=== PATIENT | male | born 1930 | race Caucasian/White ===

== ENCOUNTER 2017-05-02 16:20 | Outpatient (CLI) | payer MEDICARE, OTHER ==
[2014-11-04 15:44] VITALS: BP 160/72
[2017-05-02 17:01] LABS: BASOPHILS % 0.9 (0.0-1.5); EOSINOPHILS % 8.8 % (0.0-6.8); MEAN CORPUSCULAR HEMOGLOBIN 30.8 pg (28.0-34.0); MEAN CORPUSCULAR VOLUME 93.4 fl (80.0-100.0); MONOCYTES % 6.6 % (0.0-11.0); NEUTROPHILS # 2.7 # k/uL (1.4-7.7)
[2017-05-02 17:25] LABS: eGFR (African) > 60; eGFR (Non-African) > 60
== END 2017-05-02 16:21 ==
LOC: LAB 16:20
PROVIDERS: ATTEND Family Medicine
DX: R41.3 Other amnesia (principal); I10 Essential (primary) hypertension
CPT/HCPCS: 36415; 80053; 82607; 82746; 84443; 85025

== ENCOUNTER 2018-03-01 14:56 | Emergency (ER) | payer MEDICARE, OTHER ==
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
[2018-03-01 16:15] LABS: BASOPHILS % 0.5 (0.0-1.5); EOSINOPHILS % 3.5 % (0.0-6.8); MEAN CORPUSCULAR VOLUME 92.4 fl (80.0-100.0); MONOCYTES % 8.8 % (0.0-11.0); NEUTROPHILS # 3.2 # k/uL (1.4-7.7)
[2018-03-01 16:21] LABS: eGFR (African) > 60; eGFR (Non-African) > 60
[2018-03-01] MEDS ORDERED: MIDAZOLAM HCL 2 MG/2 ML VIAL IM ONE (16:45)
[2018-03-01 17:54] VITALS: BP 172/82
--- NOTE | 2018-03-01 19:34 | Diagnostic Imaging Report ---
RACHAEL MONTIEL [facility] [address] [facility] [address] [address] Report Submission Date: Mar 01, 2018 3:33:05 PM CDT Patient Study Name: RACHAEL MERIDA Date: Mar 01, 2018 3:11:40 PM CDT Modality Type: DX Gender: M Description: CHEST : 32 Institution: [facility] Physician: RACHAEL MONTIEL Portable chest History: Chest pain Portable chest dated March 01, 2018 demonstrates a normal cardiomediastinal silhouette. Pulmonary vascularity is normal. Lungs are clear. Impression: No active disease. Electronically signed on Mar 01, 2018 3:33:05 PM CDT by: Tri MCCLAIN
== END 2018-03-01 17:48 | disposition home or self-care (01) ==
LOC: ED 14:56
DX: R07.9 Chest pain, unspecified (principal); F41.9 Anxiety disorder, unspecified
CPT/HCPCS: 71045; 80053; 82550; 82553; 84484; 85025; 99284; S1016

== ENCOUNTER 2018-10-23 15:45 | Outpatient (CLI) | payer MEDICARE, OTHER ==
[2018-10-23 16:39] LABS: BASOPHILS % 0.5 % (0.0-1.5); EOSINOPHILS % 5.9 % (0.0-6.8); MEAN CORPUSCULAR HEMOGLOBIN 30.6 pg (28.0-34.0); MONOCYTES % 7.2 % (0.0-11.0); NEUTROPHILS # 4.2 # k/uL (1.4-7.7)
[2018-10-23 16:58] LABS: eGFR (Non-African) > 60
== END 2018-10-23 15:47 ==
LOC: LABRHC 15:45
PROVIDERS: ATTEND Family Medicine
DX: I10 Essential (primary) hypertension (principal); R41.0 Disorientation, unspecified; I25.10 Atherosclerotic heart disease of native coronary artery without angina pectoris
CPT/HCPCS: 36415; 80053; 85025

== ENCOUNTER 2019-02-14 09:55 | Observation (INO) | payer MEDICARE, OTHER ==
[2019-02-14 10:49] VITALS: BMI 29.0
[2019-02-14 11:22] LABS: BASOPHILS % 0.3 % (0.0-1.5); NEUTROPHILS # 4.8 # k/uL (1.4-7.7)
[2019-02-14 11:44] LABS: eGFR (Non-African) > 60
--- NOTE | 2019-02-14 11:49 | History and Physical Report ---
History of Present Illnes - History of Present Illness Reason for Visit: Weakness, Confusion, Deconditioning History of Present Illness: Patient is an 89-year-old male admitted from the clinic. and daughter are with him. Patient has a hx of dementia but family feels that he has declined over the last couple of days. Per family he has been more confused, unable to walk, unsteady, needing max assist with ADL's. states that he has been eating and drinking. Has not had a fever or chills. Family just feel that there is something else going on with patient. Patient appears to have a difficult time communicating- a little slouched in w/c. Due to symptoms we will admit patient observation and check labs and xray. 12:00 spoke with family- lab work coming back normal- still waiting on radiology tests- discussed with family potential discharge tomorrow- they want to take patient home- they have agreed to home health (they have had before and were very pleased). They are not ready for shelter placement yet. - Past Medical History Cardiac: CAD, HTN PRODUCT APPLICATIONS SCIENTIST: Dementia - Past Surgical History Past Surgical History: Other (RTC) - Past Social History Smoke: No Alcohol: None Drugs: None Lives: With Family Domestic Violence: Negative - Health Maintenance Health Maintenance: Cholesterol, Influenza Vaccine Influenza Vaccine: Current for this Influenza Season Pneumonia Vaccine: Yes Resuscitation Status: Resusciation Status Resuscitation Status Full Code,No Prolong Resuscitation Review of Systems - Review of Systems Constitutional: negative: Fever, Chills Eyes: negative: pain, vision change ENT: negative: Ear Pain, Throat Pain Respiratory: negative: Shortness of Breath Cardiovascular: negative: Chest Pain, Light Headedness Gastrointestinal: negative: Nausea, Vomiting, Abdominal Pain Genitourinary: Incontinence Musculoskeletal: negative: Back Pain Skin: negative: Rash Neurological: Weakness, Confusion - Medications/Allergies Allergies/Adverse Reactions: Allergies Allergy/AdvReac Type Severity Reaction Status Date / Time bacitracin Allergy Intermediate hives and Verified 03/01/18 15:10 swelling Current Inpatient Medications: Current Inpatient Medications Sodium Chloride (Normal Saline Flush) 3 ml IV BID [place] Stop: 03/16/19 20:59 Exam - Exam Vital Signs: Vital Signs (72 hours) 02/14/19 02/14/19 02/14/19 09:59 10:15 10:39 Temperature 97.7 F 97.7 F Pulse Rate 74 Pulse Rate [ 74 74 Right Pulse ox] Respiratory 18 18 Rate Blood Pressure 105/71 105/71 [Left Arm] O2 Sat by Pulse 94 94 94 Oximetry General: Alert, Oriented to Person, Oriented to Place, Oriented to Time, Cooperative, Mild distress, Discheveled HEENT: Atraumatic, PERRLA, Mouth Mucous membr. moist/[place], Nose Mucous membr. moist/[place] Neck: Normal Range of Motion Carotids: No bruit Lungs: Clear to auscultation, Normal air movement, Speaks full Sentences Cardiovascular: Regular rate, Normal S1, Normal S2 Peripheral Edema: NOne Abdomen: Normal bowel sounds, Soft, No tenderness Integumentary: Warm, Dry, Pale Extremities: No cyanosis, No edema, Normal pulses Neurological: Strength Equal Bilat, Generalized Weakness Psych/Mental Status: Other (unable to complete sentences, slow thought process, weakness, flat affect) - Laboratory Results Laboratory Results: Laboratory Results 02/14/19 02/14/19 02/14/19 11:17 11:17 11:17 WBC 6.60 RBC 3.82 L Hgb 11.7 L Hct 34.4 L MCV 90.0 MCH 30.7 MCHC 34.1 RDW 13.5 Plt Count 188 Neut % (Auto) 73.3 Lymph % (Auto) 12.7 L Bacon % (Auto) 8.7 Eos % (Auto) 5.0 Baso % (Auto) 0.3 Neut # (Auto) 4.8 Lymph # (Auto) 0.8 Bacon # (Auto) 0.6 Eos # (Auto) 0.3 Baso # (Auto) 0.0 Sodium 137 Potassium 4.2 Chloride 98 Carbon Dioxide 28 Anion Gap 15.2 BUN 14 Creatinine 0.91 Estimated Creat Clear 67 Est GFR ( Amer) > 60 Est GFR (Non-Af Amer) > 60 Glucose 181 H Calcium 9.5 Total Bilirubin 0.5 AST 29 ALT 12 L Alkaline Phosphatase 47 Creatine Kinase 35 L CK-MB (CK-2) 1.4 Troponin I < 0.012 L NT-Pro-B Natriuret Pep 1022.7 H Total Protein 7.1 Albumin 4.0 Assessment/Plan - Assessment/Plan (1) Physical deconditioning Status: Acute Assessment: Patient is requiring more assist with ADL's, increased confusion, Plan: Will get labs, CT of head, and CXR (2) Dementia Status: Acute Assessment: Per family patient has been more confused the last couple of days- requiring more assist with ADL Plan: Continuous monitoring, labs xray and CT VTE Assessment - RISK FACTOR SCORE VTE RISK FACTOR SCORES: AGE OVER 60 YEARS - RISK VTE LOW RISK: SCORE OF 1 OR LESS (RISK PROXIMAL DVT 0.4%) NO PROPHYLAXIS NEEDED (observation admission)
--- NOTE | 2019-02-14 13:36 | Diagnostic Imaging Report ---
[facility] [address] [facility] [address] [place], [place]. [address] Report Submission Date: Feb 14, 2019 12:58:09 PM CDT Patient Study Name: RACHAEL MERIDA Date: Feb 14, 2019 12:04:38 PM CDT Modality Type: DX Gender: M Description: CHEST 2VIEW : 32 Institution: [facility] Physician: [facility]MED SURG Examination: Portable chest History: Evaluate lungs COUGH, WHEEZING Comparison exam: None available for direct review. Findings: Single view of the chest demonstrates a normal cardiac and mediastinal silhouette. Mildly tortuous aorta. Lung mckee without focal infiltrate. No blunting of the costophrenic margins. Osseous structures are appropriate for age. Impression: No acute pulmonary process. Electronically signed on Feb 14, 2019 12:58:09 PM CDT by: Lawson MCCLAIN
--- NOTE | 2019-02-14 13:37 | Diagnostic Imaging Report ---
[facility] [address] [facility] [address] [place], [place]. [address] Report Submission Date: Feb 14, 2019 12:57:13 PM CDT Patient Study Name: RACHAEL MERIDA Date: Feb 14, 2019 12:15:26 PM CDT Modality Type: CT\SR Gender: M Description: CT BRAIN W/O CONTRAST : 32 Institution: [facility] Physician: [facility]/MED SURG Examination: CT head without contrast History: INCREASING CONFUSION Comparison exam: None available Technique: Noncontrast head CT protocol. Findings: Ventricles and sulci are prominent. Cerebrocerebellar parenchyma demonstrates periventricular low attenuation consistent with small vessel disease. No evidence for parenchymal hemorrhage. No evidence for mass or mass effect. No midline shift. No extra axial fluid collections. Partial visualization of the paranasal sinuses, mastoid air cells, orbits, skull and scalp without gross irregularity. Impression: Advanced age related changes. No acute parenchymal process. No hemorrhage. Electronically signed on Feb 14, 2019 12:57:13 PM CDT by: Lawson MCCLAIN
[2019-02-14 16:29] LABS: APPEARANCE,URINE CLEAR (CLEAR); COLOR,URINE YELLOW (YELLOW); OCCULT BLOOD,URINE NEGATIVE (NEGATIVE)
[2019-02-14] MEDS: SALINE FLUSH 10 ML DISP.SYRIN IV SCH (20:34)
[2019-02-15 08:15] VITALS: BP 131/70
--- NOTE | 2019-02-16 12:37 | Discharge Summary ---
Discharge Summary - Discharge [facility] Admission Date: 02/14/19 Discharge Date: 02/15/19 Discharge To: Home, Home Health History of Present Illness: Patient is an 89-year-old male admitted from the clinic. and daughter are with him. Patient has a hx of dementia but family feels that he has declined over the last couple of days. Per family he has been more confused, unable to walk, unsteady, needing max assist with ADL's. states that he has been eating and drinking. Has not had a fever or chills. Family just feel that there is something else going on with patient. Patient appears to have a difficult time communicating- a little slouched in w/c. Due to symptoms we will admit patient observation and check labs and xray. 12:00 spoke with family- lab work coming back normal- still waiting on radiology tests- discussed with family potential discharge tomorrow- they want to take patient home- they have agreed to home health (they have had before and were very pleased). They are not ready for termite treater placement yet. Condition at Discharge: Stable Home Medications: Ambulatory Orders Medication Instructions Recorded Memantine HCl 5 mg PO BID #60 u2 11/09/18 Consultations this Visit: None Procedures this Visit: None Allergies/Adverse Reactions: Allergies Allergy/AdvReac Type Severity Reaction Status Date / Time bacitracin Allergy Intermediate hives and Verified 03/01/18 15:10 swelling Discharge Summary: Patient is much more awake this morning- he is alert and oriented- he has been eating well- has ambulated in the [place] with therapies and did well- but needs therapy and assistance in the home. Home Health has been contacted and orders written for Home Health to come in. Hospital Course: Labs, xray, CT, PT & OT evaluation - Final Diagnosis (1) Physical deconditioning Problems: Will get home health in the home with PT/OT Right or Left: Right (2) Dementia Problems: Will get home health Right or Left: Right
== END 2019-02-15 10:00 | disposition home or self-care (01) ==
LOC: SOUTH 09:55
PROVIDERS: ADMIT Nurse Practitioner Family; ATTEND Nurse Practitioner Family
DX: M62.81 Muscle weakness (generalized) (principal); F03.90 Unspecified dementia, unspecified severity, without behavioral disturbance, psychotic disturbance, mood disturbance, and anxiety
CPT/HCPCS: 36415; 70450; 71046; 80053; 81002; 82550; 82553; 83880; 84484; 85025; 87040; 99218; G0378; G0379; S1016

== ENCOUNTER 2019-05-20 18:28 | Emergency (ER) | payer MEDICARE, OTHER ==
--- NOTE | 2019-05-20 18:33 | ED Physician Documentation ---
General Adult - HISTORIAN Historian: patient - HPI Stated Complaint: syncope at noon today woke at 5 pm not feeling well Chief Complaint: Syncope Onset: hours (6) Timing: better Severity: mild Further Comments: yes (per spouse he "passed out" around noon and he went and laid down (this has happened frequently) and he woke around 5 pm and he told her he "didnt feel well" he states now he feels fine. No complaints) - ROS CONST: no problems MS/SKIN/LYMPH: none. denies: rash - PAST HX Past History: hypertension Allergies/Adverse Reactions: Allergies Allergy/AdvReac Type Severity Reaction Status Date / Time bacitracin Allergy Intermediate hives and Verified 05/20/19 18:47 swelling Home Medications: Ambulatory Orders Medication Instructions Recorded Memantine HCl 5 mg PO BID #60 u2 11/09/18 Aspirin [Adult Low Dose Aspirin EC] 81 mg PO DAILY 05/20/19 Multivitamin [Tab-A-Chris] 1 each PO DAILY 05/20/19 - SOCIAL HX Smoking History: non-smoker Alcohol Use: none Drug Use: none - FAMILY HX Family History: No - VITAL SIGNS Vital Signs: Vital Signs Temp Pulse Resp BP Pulse Ox 131/70 02/15/19 08:14 - REVIEWED ASSESSMENTS Nursing Assessment Reviewed: Yes Vitals Reviewed: Yes General Adult Physical Exam - PHYSICAL EXAM GENERAL APPEARANCE: no distress EENT: eye inspection normal, pharynx normal, no signs of dehydration, JESU NECK: normal inspection RESPIRATORY: no resp distress, chest non-tender, breath sounds normal CVS: reg rate & rhythm, heart sounds normal, equal pulses ABDOMEN: soft, normal bowel sounds, no distension, non-tender BACK: normal inspection, no CVA tenderness SKIN: warm/dry EXTREMITIES: non-tender, normal range of motion, no evidence of injury NEURO: oriented X3 Discharge Clincal Impression: Syncopal episodes Qualifiers: Syncope type: unspecified Qualified Code(s): R55 - Syncope and collapse Referrals: Malcolm Jensen MD [Primary Care Provider] - 2 Days Comments: 1. Call PCP in am to make a follow up appt 2. Return to ER for any increased concerns Condition: Stable Disposition: 01 HOME, SELF-CARE Decision to Admit: NO Date of Decison to Admit: 05/20/19 Decision Time: 19:35
[2019-05-20 18:47] LABS: BASOPHILS % 0.3 % (0.0-1.5); NEUTROPHILS # 6.2 # k/uL (1.4-7.7)
[2019-05-20 18:57] LABS: eGFR (Non-African) > 60
[2019-05-20 19:40] VITALS: BP 152/72
[2019-05-21 06:57] LABS: APPEARANCE,URINE CLEAR (CLEAR); COLOR,URINE YELLOW (YELLOW); OCCULT BLOOD,URINE NEGATIVE (NEGATIVE); PH URINE 6.5 (5.0 - 8.0)
--- NOTE | 2019-05-21 09:54 | Diagnostic Imaging Report ---
[facility] [address] [facility] [address] Patient Name: RACHAEL MERIDA Referring Physician: Cynthia Campoverde Date of : 1930 Gender: M Date of Service: 05/20/2019 Exam Requested: CT BRAIN W/O CONTRAST CT brain noncontrast Date of study: May 20, 2019. CLINICAL HISTORY: SYNCOPAL EPISODE (Hx) / ITS.REASON^Syncopial episode TECHNIQUE: 5 mm contiguous axial images of the brain, noncontrast. FINDINGS: Diffuse cortical and central atrophy is present. There are chronic periventricular microvascular ischemic changes. There is no evidence of intracranial mass effect, hemorrhage, or acute hydrocephalus. The lateral ventricles are symmetrical and the 4th ventricle is midline without shift. No acute brain parenchymal changes or extra-axial fluid collections are identified. The posterior fossa contents are within normal limits. Bilateral cavernous internal carotid artery calcified atherosclerotic plaques are noted. The calvarium is intact. The visualized sinuses and mastoid air cells are clear. IMPRESSION: No acute intracranial process. Atrophy and chronic periventricular microvascular ischemic changes. Y
--- NOTE | 2019-05-21 09:55 | Diagnostic Imaging Report ---
[facility] [address] [facility] [address] Patient Name: RACHAEL MERIDA Referring Physician: Cynthia Campoverde Date of : 1930 Gender: M Date of Service: 05/20/2019 Exam Requested: CHEST 1VIEW Chest AP portable Date of Exam: May 20, 2019. History: SYNCOPAL EPISODE (Hx) / Findings: Comparison with February 14, 2019 demonstrates the cardiac and mediastinal silhouettes are stable. No acute infiltrate or effusion is identified. The trachea is midline and aortic arch contour is normal. The pulmonary vascularity is stable. Impression: No acute cardiopulmonary abnormality. Y
== END 2019-05-20 19:30 | disposition home or self-care (01) ==
LOC: ED 18:28
DX: R55 Syncope and collapse (principal)
CPT/HCPCS: 36415; 70450; 71045; 80053; 81002; 85025; 93005; 99282; S1016

== ENCOUNTER 2019-06-27 14:11 | Observation (INO) | payer MEDICARE, OTHER ==
--- NOTE | 2019-06-27 14:18 | ED Physician Documentation ---
General Adult - HISTORIAN Historian: patient - HPI Stated Complaint: altered mental status Chief Complaint: General Adult Additional Information: Patient presents to ED via EMS with altered mental status. Patient was found unresponsive today, staring off into space, not interacting with . He was unresponsive for approximately 40 minutes. Patient was seen here on 06/15/19 for similar symptoms and admitted at that time. He reportedly had heart rate in the 30s with hypotension, his metoprolol was discontinued. He currently has a cardiac event monitor from the [facility]. Upon arrival to ED patient is awake alert and has no complaints. Vital signs HR 72, BP 105/47, SaO2 92% on room air. Onset: hours (1) Timing: better Severity: moderate - ROS CONST: denies: fever EYES/ENT: none CVS/RESP: denies: chest pain, shortness of breath GI/: denies: vomiting, nausea MS/SKIN/LYMPH: none NEURO/PSYCH: denies: headache, dizziness - PAST HX Past History: none Other History: none Surgeries/Procedures: none Allergies/Adverse Reactions: Allergies Allergy/AdvReac Type Severity Reaction Status Date / Time bacitracin Allergy Intermediate hives and Verified 06/27/19 14:34 swelling Home Medications: Ambulatory Orders Medication Instructions Recorded Memantine HCl 5 mg PO BID #60 u2 11/09/18 Aspirin [Adult Low Dose Aspirin EC] 81 mg PO DAILY 05/20/19 Multivitamin [Tab-A-Chris] 1 each PO DAILY 05/20/19 amLODIPine BESYLATE [Norvasc] 5 mg PO DAILY #30 tablet 06/16/19 - SOCIAL HX Smoking History: non-smoker Alcohol Use: none Drug Use: none - FAMILY HX Family History: No - VITAL SIGNS Vital Signs: Vital Signs Temp Pulse Resp BP Pulse Ox 135/74 06/16/19 11:03 - REVIEWED ASSESSMENTS Nursing Assessment Reviewed: Yes Vitals Reviewed: Yes Progress - Progress Progress: [address] Rodriguez, agrees with admission for observation. ED Results Lab/Radiology - Orders Orders: ED Orders Category Date Time Status Continuous EKG monitoring Q30M Care 06/27/19 14:[address] IV Lock 1T Care 06/27/19 14:16 Active CBC/PLATELET/DIFF Routine Lab 06/27/19 Ordered CMP Routine Lab 06/27/19 Ordered NT BNP Stat Lab 06/27/19 Ordered TROPONIN I Stat Lab 06/27/19 Ordered EKG WITH COMPARISON Stat Ther 06/27/19 Ordered General Adult Physical Exam - PHYSICAL EXAM GENERAL APPEARANCE: no distress EENT: JESU NECK: lymphadenopathy RESPIRATORY: no resp distress, breath sounds normal CVS: reg rate & rhythm, heart sounds normal ABDOMEN: soft, non-tender, tenderness SKIN: warm/dry EXTREMITIES: non-tender, no edema NEURO: oriented X3, mood/affect nml Discharge Clincal Impression: Altered mental status, unspecified Qualifiers: Altered mental status type: somnolence Qualified Code(s): R40.0 - Somnolence Referrals: Malcolm Jensen MD [Primary Care Provider] - 2 Days Additional Instructions: admit, observation, to Dr. Rodriguez Condition: Stable Decision to Admit: NO Date of Decison to Admit: 06/27/19 Decision Time: 16:30
[2019-06-27 14:41] LABS: BASOPHILS % 0.4 % (0.0-1.5); NEUTROPHILS # 5.1 # k/uL (1.4-7.7)
[2019-06-27 14:43] LABS: eGFR (Non-African) > 60
--- NOTE | 2019-06-27 16:37 | Diagnostic Imaging Report ---
PATIENT MR#: [id number] PATIENT PATIENT NAME: RACHAEL MERIDA DATE OF : 1930 REFERRING PHYSICIAN: Michael Rodriguez EXAM DATE: 06/27/2019 ACCESSION NUMBER: [id number] EXAM DESCRIPTION: CHEST 1VIEW Exam: AP chest. History: Syncope. The examination is compared to study dated May 20, 2019. Lung mckee are well aerated without benjamín consolidation or effusion. Heart and mediastinal contours are normal with atherosclerotic plaques seen in the aorta. Impression: No benjamín consolidation or effusion. Read by: Dr. Sanya Agarwal Transcribed by: Transcribed Date: Electronically signed by: Dr. Sanya Agarwal Date signed: 06/27/2019 4:36:58 PM
[2019-06-27 17:58] VITALS: BMI 29.0
[2019-06-27] MEDS: risperiDONE 0.5 MG TABLET PO SCH (20:07)
[2019-06-27] MEDS ORDERED: MEMANTINE HCL 10 MG TABLET PO SCH (21:00)
[2019-06-27] MEDS ORDERED: MONTELUKAST SODIUM 10 MG TABLET PO SCH (21:00)
[2019-06-28] MEDS ORDERED: PANTOPRAZOLE SODIUM 40 MG TABLET.DR PO SCH (07:00)
[2019-06-28] MEDS ORDERED: LISINOPRIL 10 MG TABLET PO ONE (07:15)
--- NOTE | 2019-06-28 07:17 | Discharge Summary ---
Discharge Summary - Discharge [facility] Admission Date: 06/27/19 (OBS) Discharge Date: 06/28/19 (Home) Discharge To: Home History of Present Illness: 89-year-old white male who for several years has been having some intermittent syncopal episodes. Patient has been evaluated at the [facility] in clinic with cardiology and neurology consultations. No specific etiology have been found. Patient stated to syncopal episode appeared to becoming more frequent than what they have been previously. Patient has had a previous hospitalization with his heart rate shannon down into the upper 30s and 40s. It is about the patient may be having some bradycardia and subsequent hypotension causing his syncopal episode. Patient with discontinued off of his metoprolol. On the afternoon of admission patient had another spell where he became more confused and incoherent for approximately 30 to 45 minutes and then had a another syncopal episode. Patient was subsequently brought to the hospital. On arrival patient vital signs are stable and his mental status had return back to baseline. Patient was subsequently admitted to the hospital for furtherevaluation and treatment. Condition at Discharge: Stable Home Medications: Ambulatory Orders Medication Instructions Recorded Memantine HCl 5 mg PO BID #60 u2 11/09/18 Aspirin [Adult Low Dose Aspirin EC] 81 mg PO DAILY 05/20/19 Multivitamin [Tab-A-Chris] 1 each PO DAILY 05/20/19 amLODIPine BESYLATE [Norvasc] 5 mg PO DAILY #30 tablet 06/16/19 Consultations this Visit: None Procedures this Visit: None Allergies/Adverse Reactions: Allergies Allergy/AdvReac Type Severity Reaction Status Date / Time bacitracin Allergy Intermediate hives and Verified 06/27/19 14:34 swelling Patient Problems: Current Active Problems Problem Status Onset Altered mental status, unspecified Acute Discharge Summary: Patient has been placed on a air sampling and monitoring. During the course of stay patient did with another to shannon down into the mid 30s. This lasted for just several seconds and was asymptomatic. It was felt that the patient repetitive syncopal/new syncopal episodes may be related to bradycardia and low blood pressure. 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 - Final Diagnosis (2) CAD (coronary artery disease) Problems: stable (3) Essential hypertension Problems: stable (4) Dementia Problems: stable
[2019-06-28] MEDS: risperiDONE 0.5 MG TABLET PO SCH (08:02)
[2019-06-28 08:55] VITALS: BP 131/70
[2019-06-28] MEDS ORDERED: ASPIRIN EC 81 MG TABLET.DR PO SCH (09:00)
[2019-06-28] MEDS ORDERED: amLODIPine BESYLATE 5 MG TABLET PO SCH (09:00)
[2019-06-28] MEDS ORDERED: MULTIVITAMIN 1 EACH TABLET PO SCH (09:00)
[2019-06-28] MEDS ORDERED: LISINOPRIL 5 MG TABLET PO SCH (09:00)
== END 2019-06-28 08:20 | disposition home or self-care (01) ==
LOC: ED 14:11 → SOUTH 16:30
PROVIDERS: ADMIT Family Medicine; ATTEND Family Medicine
DX: R40.0 Somnolence (principal); I25.10 Atherosclerotic heart disease of native coronary artery without angina pectoris; I10 Essential (primary) hypertension; F03.90 Unspecified dementia, unspecified severity, without behavioral disturbance, psychotic disturbance, mood disturbance, and anxiety
CPT/HCPCS: 71045; 80053; 83880; 84484; 85025; 93005; 99218; 99282; 99284; G0378